=== PATIENT | male | born 1990 | race Caucasian/White ===

== ENCOUNTER 2018-08-29 21:51 | Emergency (ER) | payer MEDICAID ==
[~2018-08-29] VITALS: Ht 188 cm; Wt 146.9 kg
[~2018-08-29 21:51] MED LIST: AZIT250T PO; PSEU120T84 PO
[2018-08-29] MEDS ORDERED: PRED20TA PO (22:36)
[2018-08-29] MEDS ORDERED: PENI250T2 PO (22:36)
[2018-08-29] MEDS ORDERED: HYDR-4353 PO (22:37)
[2018-08-29 23:10] VITALS: BP 166/97
== END 2018-08-29 23:15 | disposition home or self-care (01) ==
LOC: ER 21:51
DX: K04.7 Periapical abscess without sinus (principal); K06.8 Other specified disorders of gingiva and edentulous alveolar ridge; Z91.030 Bee allergy status
CPT/HCPCS: 99283

== ENCOUNTER 2019-07-30 16:40 | Emergency (ER) | payer MEDICAID ==
[~2019-07-30] VITALS: Ht 188 cm; Wt 122.7 kg
[2019-07-30] MEDS ORDERED: IBUP-1985 PO (16:58)
[2019-07-30 17:05] VITALS: BP 180/78
== END 2019-07-30 17:08 | disposition home or self-care (01) ==
LOC: ER 16:40
DX: M79.671 Pain in right foot (principal); Z79.2 Long term (current) use of antibiotics; Z79.899 Other long term (current) drug therapy; Z91.030 Bee allergy status
CPT/HCPCS: 99282

== ENCOUNTER 2022-03-09 12:13 | Emergency (ER) | payer MEDICAID ==
[~2022-03-09] VITALS: Ht 188 cm; Wt 154.6 kg
[~2022-03-09 12:13] MED LIST changes: +IBUP-1985 PO
[2022-03-09 12:34] VITALS: BP 137/83
[2022-03-09] MEDS ORDERED: LIDOcaine 1% 30ml preserv. free vial IJ ONE (12:45)
== END 2022-03-09 13:29 | disposition home or self-care (01) ==
LOC: ER 12:13
DX: S61.412A Laceration without foreign body of left hand, initial encounter (principal); W45.8XXA Other foreign body or object entering through skin, initial encounter; Y93.89 Activity, other specified; Y92.89 Other specified places as the place of occurrence of the external cause; Y99.8 Other external cause status
CPT/HCPCS: 12001; 99282